=== PATIENT | female | born 1935 | race Caucasian/White ===

== ENCOUNTER 2016-06-28 22:43 | Emergency (ER) | payer OTHER, MEDICAID ==
--- NOTE | 2016-06-28 23:46 | ER Document Report ---
ED Fall - General Stated Complaint: BACK PAIN Time seen by provider: 23:45 Notes: Patient is an 81-year-old female that comes emergency department for chief complaint of fall injury, patient comes by EMS from [facility] assisted living, patient reportedly was attempting to walk without her walker when she fell backwards and landed on her lower back, patient was found lying on the floor, patient states she hit her head on the floor but she denies any headache. Patient states mainly her pain is in her lower back. She denies numbness or weakness. Patient is reported to be on a blood thinner by patient' s son who is at bedside. TRAVEL OUTSIDE OF THE [place] IN LAST 30 DAYS: No - Related data Allergies/Adverse Reactions: No Known Allergies Allergy (Unverified 07/06/12 18:48) Past Medical History - General Information source: Patient - Social History Smoking Status: Never Smoker Frequency of alcohol use: None Drug Abuse: None Lives with: Family Family History: Reviewed & Not Pertinent - Past Medical History Cardiac Medical History: Reports: Hx Heart Attack - 3 YEARS AGO. , Hx Hypertension Pulmonary Medical History: Denies: Hx Asthma Neurological Medical History: Reports: Hx Seizures - YEARS AGO. Denies: Hx Cerebrovascular Accident Malignancy Medical History: Reports: Hx Colorectal Cancer, Hx Lung Cancer GI Medical History: Reports: Hx Gastritis, Hx Gastroesophageal Reflux Disease. Denies: Hx Hepatitis, Hx Hiatal Hernia, Hx Ulcer Musculoskeltal Medical History: Reports Hx Arthritis, Reports Hx Musculoskeletal Deformity - osteoporosis, Reports Hx Musculoskeletal Trauma - right knee Psychiatric Medical History: Reports: Hx Dementia Traumatic Medical History: Reports: Hx Fractures Infectious Medical History: Denies: Hx Hepatitis Past Surgical History: Reports: Hx Bowel Surgery - colon resection for cancer, Hx Orthopedic Surgery - knee replacement, Hx Tubal Ligation. Denies: Hx Mastectomy, Hx Open Heart Surgery, Hx Pacemaker - Immunizations Immunizations up to date: Yes Hx Diphtheria, Pertussis, Tetanus Vaccination: Yes - 2011 Hx Pneumococcal Vaccination: 02/14/12 Review of Systems - Review of Systems Constitutional: No symptoms reported EENT: No symptoms reported Cardiovascular: No symptoms reported Respiratory: No symptoms reported Gastrointestinal: No symptoms reported Genitourinary: No symptoms reported Female Genitourinary: No symptoms reported Musculoskeletal: See HPI Skin: No symptoms reported Hematologic/Lymphatic: No symptoms reported Neurological/Psychological: See HPI Physical Exam - Vital signs Vitals: Temp Pulse Resp BP Pulse Ox 98.2 F 63 16 158/95 H 96 06/28/16 22:45 06/28/16 22:45 06/28/16 22:45 06/28/16 22:45 06/28/16 22:45 Interpretation: Normal - General General appearance: Appears well, Alert In distress: None - Patient sitting in the bed, actually alert and well- appearing - HEENT Head: Normocephalic, Atraumatic Eyes: Normal Conjunctiva: Normal Extraocular movements intact: Yes Eyelashes: Normal Pupils: PERRL Nasal: Normal Mouth/Lips: Normal Mucous membranes: Normal Pharynx: Normal Neck: Normal - Respiratory Respiratory status: No respiratory distress Chest status: Nontender Breath sounds: Normal Chest palpation: Normal - Cardiovascular Rhythm: Regular. No: Tachycardia Heart sounds: Normal auscultation, S1 appreciated, S2 appreciated - Abdominal Inspection: Normal Distension: No distension Bowel sounds: Normal Tenderness: Nontender. No: Tender, Guarding Organomegaly: No organomegaly - Back Back: Tender - Tender mainly in the left lumbar paraspinal muscles, I do not appreciate any midline tenderness of the spine, no saddle anesthesia, normal upper and lower extremity range of motion, strength, distal neurovascular exam - Extremities General upper extremity: Normal inspection, Nontender, Normal color, Normal ROM , Normal temperature General lower extremity: Other - Patient grimaces with palpation over both hips , nonspecific, normal lower extremity exam is otherwise - Neurological Neuro grossly intact: Yes Cognition: Normal. No: Confused - Patient can recall the events, is oriented to person, place Orientation: AAOx4 Debi Coma Scale Eye Opening: Spontaneous Debi Coma Scale Verbal: Oriented [place] Coma Scale Motor: Obeys Commands [place] Coma Scale Total: 15 Speech: Normal Cranial nerves: Normal Cerebellar coordination: Normal Motor strength normal: LUE, RUE, LLE, RLE Additional motor exam normals: Equal glass sander Sensory: Normal - Psychological Associated symptoms: Normal affect, Normal mood - Skin Skin Temperature: Warm Skin Moisture: Dry Skin Color: Normal Course - Re-evaluation Re-evalutation: CT of the head reviewed and unremarkable. Hip x-rays unremarkable. Patient has mild tenderness on the left lumbar paraspinal muscles, I do not appreciate any midline tenderness, imaging showing possible L1 compression fracture, undetermined age. Patient moving all extremities without difficulty, normal distal neurovascular exam. Discussed with patient and son, provided with pain medication, stool softener, instructions to follow-up with primary care for additional management. Discussed return precautions. - Vital Signs Vital signs: Temp Pulse Resp BP Pulse Ox 97.6 F 67 14 155/61 H 99 06/29/16 02:10 06/29/16 02:10 06/29/16 02:10 06/29/16 02:10 06/29/16 02:10 Discharge - Discharge Clinical Impression: Fall Qualifiers: Encounter type: initial encounter Qualified Code(s): W19.XXXA - Unspecified fall, initial encounter Lower back pain Qualifiers: Chronicity: acute Back pain laterality: bilateral Sciatica presence: without sciatica Qualified Code(s): M54.5 - Low back pain Condition: Stable Disposition: HOME, SELF-CARE Additional Instructions: Imaging of the head and hips show no abnormality, imaging of the lower back shows an uncertain age of a compression deformity at L1. It is uncertain if this is new at this time, take pain medication and stool softener as directed, if symptoms continue follow-up with your provider for additional evaluation. Return to the emergency department for any concerning symptoms. Prescriptions: Docusate Sodium [Colace 100 mg Capsule] 100 mg PO DAILY #30 capsule Hydrocodone/Acetaminophen [Redding 5-325 mg Tablet] 1 - 2 tab PO ASDIR #15 tablet Forms: Elevated Blood Pressure Referrals: PUMA STUBBS FNP-C [Primary Care Provider] - Follow up as needed Print Language: Welsh
[2016-06-29] MEDS ORDERED: HYDROCODONE/ACETAMINOPHEN 5-325 MG TABLET PO ONE (01:25)
[2016-06-29] MEDS ORDERED: ONDANSETRON 4 MG TAB.RAPDIS PO ONE (01:25)
[2016-06-29 04:14] VITALS: BP 155/61
== END 2016-06-29 02:15 | disposition home or self-care (01) ==
LOC: ER 22:43
DX: M54.5 Low back pain (principal); W19.XXXA Unspecified fall, initial encounter; Y93.01 Activity, walking, marching and hiking; Y92.199 Unspecified place in other specified residential institution as the place of occurrence of the external cause; I25.2 Old myocardial infarction; I10 Essential (primary) hypertension; Z79.01 Long term (current) use of anticoagulants; Z85.118 Personal history of other malignant neoplasm of bronchus and lung; Z85.048 Personal history of other malignant neoplasm of rectum, rectosigmoid junction, and anus
CPT/HCPCS: 99284; 72110; 73522; 70450; A9270 ×2; S0119

== ENCOUNTER 2016-11-25 19:58 | Emergency (ER) | payer MEDICARE, MEDICAID ==
[2016-11-25] MEDS ORDERED: NORMAL SALINE 1000 ML 1,000 ML IV ONE (20:15)
--- NOTE | 2016-11-25 20:18 | ER Document Report ---
ED Extremity Problem, Upper - General Chief Complaint: Shoulder Injury Stated Complaint: FALL/SHOULDER PAIN Time Seen by Provider: 11/25/16 20:14 Notes: The patient is an 81-year-old female who presents with left shoulder pain after a fall. She was given 60 mcg of fentanyl by EMS prior to arrival. She lives at [facility]. Patient says that she slipped on carpet while using her walker and landed on her left elbow. She denies hitting her head, neck pain, numbness, tingling or any other injuries. TRAVEL OUTSIDE OF THE [place] IN LAST 30 DAYS: No - Related Data Allergies/Adverse Reactions: No Known Allergies Allergy (Unverified 07/06/12 18:48) Past Medical History - General Information source: Patient - Social History Smoking Status: Unknown if Ever Smoked Family History: Reviewed & Not Pertinent - Past Medical History Cardiac Medical History: Reports: Hx Heart Attack - 3 YEARS AGO. , Hx Hypertension Pulmonary Medical History: Denies: Hx Asthma Neurological Medical History: Reports: Hx Seizures - YEARS AGO. Denies: Hx Cerebrovascular Accident Malignancy Medical History: Reports: Hx Colorectal Cancer, Hx Lung Cancer GI Medical History: Reports: Hx Gastritis, Hx Gastroesophageal Reflux Disease. Denies: Hx Hepatitis, Hx Hiatal Hernia, Hx Ulcer Musculoskeltal Medical History: Reports Hx Arthritis, Reports Hx Musculoskeletal Deformity - osteoporosis, Reports Hx Musculoskeletal Trauma - right knee Psychiatric Medical History: Reports: Hx Dementia Traumatic Medical History: Reports: Hx Fractures Infectious Medical History: Denies: Hx Hepatitis Past Surgical History: Reports: Hx Bowel Surgery - colon resection for cancer, Hx Orthopedic Surgery - knee replacement, Hx Tubal Ligation. Denies: Hx Mastectomy, Hx Open Heart Surgery, Hx Pacemaker - Immunizations Immunizations up to date: Yes Hx Diphtheria, Pertussis, Tetanus Vaccination: Yes - 2011 Hx Pneumococcal Vaccination: 02/14/12 Review of Systems - Review of Systems Notes: REVIEW OF SYSTEMS: CONSTITUTIONAL: -fevers, -chills EENT: -eye pain, -difficulty swallowing, -nasal congestion CARDIOVASCULAR:-chest pain, -syncope. RESPIRATORY: -cough, -SOB GASTROINTESTINAL: -abdominal pain, - nausea, -vomiting, -diarrhea GENITOURINARY: -dysuria, -hematuria MUSCULOSKELETAL: +left shoulder pain, -back pain, -neck pain SKIN: -rash or skin lesions. HEMATOLOGIC: -easy bruising or bleeding. LYMPHATIC: -swollen, enlarged glands. NEUROLOGICAL: -altered mental status or loss of consciousness, -headache, - neurologic symptoms PSYCHIATRIC: -anxiety, -depression. ALL OTHER SYSTEMS REVIEWED AND NEGATIVE. Physical Exam - Vital signs Vitals: Temp Resp BP Pulse Ox 98.9 F 16 87/55 L 94 11/25/16 20:10 11/25/16 20:10 11/25/16 20:10 11/25/16 20:10 - Notes Notes: PHYSICAL EXAMINATION: GENERAL: Well-appearing, well-nourished and in no acute distress. HEAD: Atraumatic, normocephalic. EYES: Pupils equal round and reactive to light, extraocular movements intact, sclera anicteric, conjunctiva are normal. ENT: nares patent, oropharynx clear without exudates. Moist mucous membranes. NECK: Normal range of motion, supple without lymphadenopathy LUNGS: Breath sounds clear to auscultation bilaterally and equal. No wheezes rales or rhonchi. HEART: Regular rate and rhythm without murmurs ABDOMEN: Soft, nontender, normoactive bowel sounds. No guarding, no rebound. No masses appreciated. EXTREMITIES: Tenderness and deformity of left proximal humerus. Swelling of left elbow. Strong radial and ulnar pulses. NEUROLOGICAL: Cranial nerves grossly intact. Normal speech, normal gait. Normal sensory and motor exams. PSYCH: Normal mood, normal affect. SKIN: Small x-shaped laceration over left elbow. Course - Re-evaluation Re-evalutation: Patient with evidence of left humeral head fracture. Small left elbow laceration repaired with Dermabond. Patient placed in sling and instructed to follow-up with orthopedics. She is neurovascularly intact distally and her tetanus is up-to-date. She says that this was a strictly mechanical fall and she did not hit her head. - Vital Signs Vital signs: Temp Pulse Resp BP Pulse Ox 98.9 F 14 124/73 96 11/25/16 20:10 11/25/16 21:01 11/25/16 21:01 11/25/16 21:01 - Diagnostic Test Radiology reviewed: Image reviewed, Reports reviewed Radiology results interpreted by me: Left humerus x-ray: Comminuted fracture of left humerus head Procedures - Laceration/Wound Repair Left Elbow Time completed: 21:28 Wound length (cm): 2 Wound's Depth, Shape: Superficial, Irregular Wound explored: Clean Irrigated w/ Saline (mLs): 500 Wound Repaired With: Steri-strips, Dermabond Post-procedure wound care: Sterile dressing applied, Sling applied Post-procedure NV exam normal: Yes Complications: No Discharge - Discharge Clinical Impression: Fracture of humeral head, closed Qualifiers: Encounter type: initial encounter Laterality: left Qualified Code(s): S42.292A - Other displaced fracture of upper end of left humerus, initial encounter for closed fracture Elbow laceration Qualifiers: Encounter type: initial encounter Laterality: left Qualified Code(s): S51.012A - Laceration without foreign body of left elbow, initial encounter Condition: Stable Disposition: HOME, SELF-CARE Additional Instructions: Keep the arm in the sling. Take Naprosyn and ice packs for pain adn Tylenol #3 for severe pain. Follow-up with Orthopedics. Fracture Proximal Humerus There is a fracture at the upper end of the humerus, near the shoulder joint. Your physician has assessed the fracture's severity and has determined that it will heal well without surgery or "setting." The typical shoulder fracture doesn't need a cast. It's best treated by binding the arm down with a special sling. Ice packs are used to reduce pain and swelling. After early healing has occurred, [id number] exercises are prescribed for the shoulder. Complete healing may take three to six weeks, depending on the age of the patient and the severity of the fracture. Call the doctor or return at once if the arm becomes numb, or if pain or swelling become severe. Prescriptions: Acetaminophen with Codeine [Tylenol #3 Tablet] 1 each PO Q4HP PRN #14 tablet PRN Reason: Naproxen [Naprosyn 250 mg Tablet] 250 mg PO Q12H #20 tablet Referrals: ERVIN LUCIO, [ACTIVE STAFF] - Follow up as needed
--- NOTE | 2016-11-25 20:44 | RADIOLOGY REPORT (SQ) ---
EXAM DESCRIPTION: SHOULDER LEFT 2 OR MORE VIEWS COMPLETED DATE/TIME: 11/25/2016 8:33 pm REASON FOR STUDY: fall COMPARISON: None. NUMBER OF VIEWS: Two views. TECHNIQUE: Frontal and lateral images acquired of the left shoulder. LIMITATIONS: None. FINDINGS: MINERALIZATION: Normal. BONES: Comminuted fracture of the humeral neck. JOINTS: No dislocation. VISUALIZED LUNGS AND RIBS: No pneumothorax. No rib fracture. SOFT TISSUES: No radiopaque foreign body. OTHER: No other significant finding. IMPRESSION: COMMINUTED FRACTURE OF THE HUMERAL NECK. TECHNICAL DOCUMENTATION: JOB ID: [id number] [employer]- All Rights Reserved
[2016-11-25] MEDS ORDERED: KETOROLAC TROMETHAMINE INJ/PF 30 MG/1 ML SDV IV ONE (20:55)
--- NOTE | 2016-11-25 21:17 | RADIOLOGY REPORT (SQ) ---
EXAM DESCRIPTION: ELBOW LEFT AP/LATERAL COMPLETED DATE/TIME: 11/25/2016 9:08 pm REASON FOR STUDY: left elbow injury COMPARISON: None. NUMBER OF VIEWS: Two views. TECHNIQUE: AP and lateral radiographic images acquired of the left elbow. LIMITATIONS: None. FINDINGS: MINERALIZATION: Normal. BONES: No acute fracture or dislocation. No worrisome bone lesions. JOINT: No effusion. SOFT TISSUES: No soft tissue swelling. No foreign body. OTHER: No other significant finding. IMPRESSION: NEGATIVE STUDY OF THE LEFT ELBOW. NO RADIOGRAPHIC EVIDENCE OF ACUTE INJURY. TECHNICAL DOCUMENTATION: JOB ID: [id number] [employer]- All Rights Reserved
[2016-11-25 22:26] VITALS: BP 123/71
== END 2016-11-25 22:24 | disposition home or self-care (01) ==
LOC: ER 19:58
DX: S42.292A Other displaced fracture of upper end of left humerus, initial encounter for closed fracture (principal); S51.012A Laceration without foreign body of left elbow, initial encounter; W19.XXXA Unspecified fall, initial encounter; W01.0XXA Fall on same level from slipping, tripping and stumbling without subsequent striking against object, initial encounter
CPT/HCPCS: 99283; 96361; 96374; 73070; 73030; J1885; J7030

== ENCOUNTER 2017-01-16 15:09 | Emergency (ER) | payer MEDICARE, MEDICAID ==
--- NOTE | 2017-01-16 16:08 | ER Document Report ---
ED Medical Screen (RME) - General Chief Complaint: Cough Stated Complaint: ALTERED MENTAL STATUS Time Seen by Provider: 01/16/17 15:46 Mode of Arrival: Wheelchair Information source: Patient, Relative Notes: 81-year-old female presents from care facility with concerns for altered mental status starting today associated with cough for the past 3 days patient has a history of UTIs and pneumonia in the past causing her altered mental status I have greeted and performed a rapid initial assessment of this patient. A comprehensive ED assessment and evaluation of the patient, analysis of test results and completion of the medical decision making process will be conducted by additional ED providers. PHYSICAL EXAMINATION: GENERAL: Elderly female no acute distress HEAD: Atraumatic, normocephalic. EYES: Pupils equal round extraocular movements intact, conjunctiva are normal. ENT: Nares patent NECK: Normal range of motion LUNGS: No respiratory distress Musculoskeletal: Normal range of motion NEUROLOGICAL: Normal speech, normal gait. Patient does repeat questions PSYCH: Normal mood, normal affect. SKIN: Warm, Dry, normal turgor, no rashes or lesions noted. TRAVEL OUTSIDE OF THE [place] IN LAST 30 DAYS: No - Related Data Allergies/Adverse Reactions: No Known Allergies Allergy (Unverified 07/06/12 18:48) Past Medical History - Social History Chew tobacco use (# tins/day): No Frequency of alcohol use: None Drug Abuse: None - Past Medical History Cardiac Medical History: Reports: Hx Heart Attack - 3 YEARS AGO. , Hx Hypertension Pulmonary Medical History: Denies: Hx Asthma Neurological Medical History: Reports: Hx Seizures - YEARS AGO. Denies: Hx Cerebrovascular Accident Renal/ Medical History: Denies: Hx Peritoneal Dialysis Malignancy Medical History: Reports: Hx Colorectal Cancer, Hx Lung Cancer GI Medical History: Reports: Hx Gastritis, Hx Gastroesophageal Reflux Disease. Denies: Hx Hepatitis, Hx Hiatal Hernia, Hx Ulcer Musculoskeltal Medical History: Reports Hx Arthritis, Reports Hx Musculoskeletal Deformity - osteoporosis, Reports Hx Musculoskeletal Trauma - right knee Psychiatric Medical History: Reports: Hx Dementia Traumatic Medical History: Reports: Hx Fractures Infectious Medical History: Denies: Hx Hepatitis Past Surgical History: Reports: Hx Bowel Surgery - colon resection for cancer, Hx Orthopedic Surgery - knee replacement, Hx Tubal Ligation. Denies: Hx Mastectomy, Hx Open Heart Surgery, Hx Pacemaker - Immunizations Immunizations up to date: Yes Hx Diphtheria, Pertussis, Tetanus Vaccination: Yes - 2011 Physical Exam - Vital signs Vitals: Temp Pulse Resp BP Pulse Ox 98.7 F 87 20 140/65 H 96 01/16/17 15:17 01/16/17 15:17 01/16/17 15:17 01/16/17 15:17 01/16/17 15:17 Course - Vital Signs Vital signs: Temp Pulse Resp BP Pulse Ox 98.7 F 87 20 140/65 H 96 01/16/17 15:17 01/16/17 15:17 01/16/17 15:17 01/16/17 15:17 01/16/17 15:17
[2017-01-16 16:29] LABS: PROTHROMBIN TIME 12.9 SEC (11.4-15.4)
[2017-01-16 16:31] LABS: VENOUS BLOOD BASE EXCESS 6.7 mmol/L; VENOUS BLOOD HCO3 30.1 mmol/L (20-32); VENOUS BLOOD PCO2 38.7 mmHg (35-63); VENOUS BLOOD PH 7.51 (7.30-7.42)
[2017-01-16 16:33] LABS: ABSOLUTE LYMPHOCYTES (AUTO) 1.7 10^3/uL (0.5-4.7); ABSOLUTE MONOCYTES (AUTO) 0.5 10^3/uL (0.1-1.4); ABSOLUTE NEUT (AUTO) 6.3 10^3/uL (1.7-8.2); BASOPHILS % (AUTO) 0.3 % (0-2); EOSINOPHILS % (AUTO) 0.5 % (0-6); HEMATOCRIT 32.3 % (36.0-47.0); HEMOGLOBIN 11.3 g/dL (12.0-15.5); HGB HCT DIFFERENCE 1.6; LYMPHOCYTES % (AUTO) 20.2 % (13-45); MEAN CORPUSCULAR HEMOGLOBIN 31.3 pg (27.0-33.4); MEAN CORPUSCULAR VOLUME 90 fl (80-97); MONOCYTES % (AUTO) 5.3 % (3-13); RED BLOOD COUNT 3.61 10^6/uL (3.72-5.28); RED CELL DISTRIBUTION WIDTH 15.4 % (11.5-14.0); SEGMENTED NEUTROPHILS % (AUTO) 73.7 % (42-78); WHITE BLOOD COUNT 8.5 10^3/uL (4.0-10.5)
[2017-01-16 16:55] LABS: ALANINE AMINOTRANSFERASE 24 U/L (9-52); ALBUMIN 3.8 g/dL (3.5-5.0); ALKALINE PHOSPHATASE 142 U/L (38-126); ANION GAP 10 (5-19); ASPARTATE AMINO TRANSFERASE 32 U/L (14-36); BILIRUBIN,DIRECT 0.4 mg/dL (0.0-0.4); BILIRUBIN,TOTAL 0.6 mg/dL (0.2-1.3); BLOOD UREA NITROGEN 12 mg/dL (7-20); CALCIUM 9.3 mg/dL (8.4-10.2); CARBON DIOXIDE 29 mmol/L (22-30); CHLORIDE 102 mmol/L (98-107); CREATININE RESULT 0.56 mg/dL (0.52-1.25); GLUCOSE 106 mg/dL (75-110); POTASSIUM 3.9 mmol/L (3.6-5.0); SODIUM 141.3 mmol/L (137-145); TOTAL PROTEIN 7.3 g/dL (6.3-8.2)
--- NOTE | 2017-01-16 17:00 | RADIOLOGY REPORT (SQ) ---
EXAM DESCRIPTION: CHEST PA/LAT COMPLETED DATE/TIME: 01/16/2017 4:51 pm REASON FOR STUDY: altered COMPARISON: 11/10/2014. NUMBER OF VIEWS: Two view. TECHNIQUE: Frontal and lateral radiographic views of the chest acquired. LIMITATIONS: None. FINDINGS: LUNGS AND PLEURA: No opacities, masses or pneumothorax. No pleural effusion. Attenuated bl ood vessels and flattened sal-diaphragms. MEDIASTINUM AND HILAR STRUCTURES: No masses. No contour abnormalities. HEART AND VASCULAR STRUCTURES: Heart normal in size and contour. No evidence for failure. BONES: Compression fracture of a lower thoracic vertebral body, presumably old. Healing fracture of the left humeral neck. HARDWARE: None in the chest. OTHER: No other significant finding. IMPRESSION: COPD. NO ACUTE RADIOGRAPHIC FINDING IN THE CHEST. TECHNICAL DOCUMENTATION: JOB ID: [id number] [employer]- All Rights Reserved
[2017-01-16 17:09] LABS: AMORPHOUS SEDIMENT,URINE TRACE /HPF; APPEARANCE,URINE SLIGHTLY-CLOUDY; BILIRUBIN,URINE NEGATIVE (NEGATIVE); GLUCOSE, URINE NEGATIVE (NEGATIVE); KETONES,URINE NEGATIVE (NEGATIVE); LEUKOCYTE ESTERASE,URINE LARGE (NEGATIVE); NITRITE,URINE NEGATIVE (NEGATIVE); PROTEIN,URINE NEGATIVE (NEGATIVE); URINE SPECIFIC GRAVITY 1.005; UROBILINOGEN,URINE NEGATIVE mg/dL (<2.0)
[2017-01-16] MEDS ORDERED: SULFAMETHOXAZOLE/TRIMETHOPRIM 800-160 MG TABLET PO ONE (18:46)
--- NOTE | 2017-01-16 18:51 | ER Document Report ---
ED General - General Chief Complaint: Cough Stated Complaint: ALTERED MENTAL STATUS Time Seen by Provider: 01/16/17 15:46 Mode of Arrival: Wheelchair Information source: Patient, Relative TRAVEL OUTSIDE OF THE [place] IN LAST 30 DAYS: No - HPI Patient complains to provider of: cough Onset: Other - family states pt. has had cough and multiple UTI's which have caused dMS changes in the past. Denies fever - Related Data Allergies/Adverse Reactions: No Known Allergies Allergy (Unverified 07/06/12 18:48) Past Medical History - General Information source: Patient, Relative - Social History Smoking Status: Never Smoker Chew tobacco use (# tins/day): No Frequency of alcohol use: None Drug Abuse: None Family History: Reviewed & Not Pertinent Patient has suicidal ideation: No Patient has homicidal ideation: No - Past Medical History Cardiac Medical History: Reports: Hx Heart Attack - 3 YEARS AGO. , Hx Hypertension Pulmonary Medical History: Denies: Hx Asthma Neurological Medical History: Reports: Hx Seizures - YEARS AGO. Denies: Hx Cerebrovascular Accident Renal/ Medical History: Denies: Hx Peritoneal Dialysis Malignancy Medical History: Reports: Hx Colorectal Cancer, Hx Lung Cancer GI Medical History: Reports: Hx Gastritis, Hx Gastroesophageal Reflux Disease. Denies: Hx Hepatitis, Hx Hiatal Hernia, Hx Ulcer Musculoskeltal Medical History: Reports Hx Arthritis, Reports Hx Musculoskeletal Deformity - osteoporosis, Reports Hx Musculoskeletal Trauma - right knee Psychiatric Medical History: Reports: Hx Dementia Traumatic Medical History: Reports: Hx Fractures Infectious Medical History: Denies: Hx Hepatitis Past Surgical History: Reports: Hx Bowel Surgery - colon resection for cancer, Hx Orthopedic Surgery - knee replacement, Hx Tubal Ligation. Denies: Hx Mastectomy, Hx Open Heart Surgery, Hx Pacemaker - Immunizations Immunizations up to date: Yes Hx Diphtheria, Pertussis, Tetanus Vaccination: Yes - 2011 Hx Pneumococcal Vaccination: 02/14/12 Review of Systems - Review of Systems Constitutional: No symptoms reported Cardiovascular: No symptoms reported Respiratory: See HPI, Cough Gastrointestinal: No symptoms reported Female Genitourinary: No symptoms reported Musculoskeletal: No symptoms reported -: Yes All other systems reviewed and negative Physical Exam - Vital signs Vitals: Temp Pulse Resp BP Pulse Ox 98.7 F 87 20 140/65 H 96 01/16/17 15:17 01/16/17 15:17 01/16/17 15:17 01/16/17 15:17 01/16/17 15:17 - General General appearance: Appears well, Alert In distress: None - Respiratory Respiratory status: No respiratory distress Breath sounds: Normal Chest palpation: Normal - Cardiovascular Rhythm: Regular Heart sounds: Normal auscultation - Abdominal Inspection: Normal Tenderness: Nontender - Extremities General upper extremity: Normal inspection General lower extremity: Normal inspection Course - Re-evaluation Re-evalutation: 01/16/17 18:48 pt. given bactrim in ED -- family ok to take her back to [facility] - Vital Signs Vital signs: Temp Pulse Resp BP Pulse Ox 98.7 F 87 20 140/65 H 96 01/16/17 15:17 01/16/17 15:17 01/16/17 15:17 01/16/17 15:17 01/16/17 15:17 - Laboratory Result Diagrams: 01/16/17 16:05 01/16/17 16:05 Laboratory results interpreted by me: 01/16/17 01/16/17 01/16/17 16:05 16:05 16:05 RBC 3.61 L Hgb 11.3 L Hct 32.3 L RDW 15.4 H VBG pH 7.51 H Alkaline Phosphatase 142 H Urine Blood Ur Leukocyte Esterase Urine Ascorbic Acid 01/16/17 16:45 RBC Hgb Hct RDW VBG pH Alkaline Phosphatase Urine Blood SMALL H Ur Leukocyte Esterase LARGE H Urine Ascorbic Acid 40 H - Diagnostic Test Radiology reviewed: Reports reviewed - neg infiltrate Discharge - Discharge Clinical Impression: UTI (urinary tract infection) Qualifiers: Urinary tract infection type: acute cystitis Hematuria presence: without hematuria Qualified Code(s): N30.00 - Acute cystitis without hematuria Condition: Stable Disposition: HOME, SELF-CARE Instructions: Trimethoprim-Sulfa ([facility]), Urinary Tract Infection ([facility]) Additional Instructions: rest, take meds as prescribed, return if worse Prescriptions: Sulfamethoxazole/Trimethoprim [Bactrim Ds Tablet] 1 each PO BID #14 tablet
[2017-01-16 19:29] VITALS: BP 132/66
--- NOTE | 2017-01-16 23:26 | EKG REPORT ---
SEVERITY:- BORDERLINE ECG - SINUS RHYTHM VENTRICULAR PREMATURE COMPLEX BORDERLINE PROLONGED QT INTERVAL : Confirmed by: Cynthia Colin 16-Jan-2017 23:24:50
== END 2017-01-16 19:51 | disposition home or self-care (01) ==
LOC: ER 15:09
DX: N30.00 Acute cystitis without hematuria (principal); R05 Cough; I25.2 Old myocardial infarction; I10 Essential (primary) hypertension; Z85.048 Personal history of other malignant neoplasm of rectum, rectosigmoid junction, and anus; Z85.118 Personal history of other malignant neoplasm of bronchus and lung
CPT/HCPCS: 93005; 99285; 51701; 36415; 87040; 87086; 85025; 85610; 87088; 80053; 81001; 87186; 82803; 83605; 71020; 93010; A9270

== ENCOUNTER → 2018-08-04 | Outpatient (CLI) | payer MEDICARE, MEDICAID | LOC: OD 11:39 | PROVIDERS: ATTEND Physician Assistant | DX: E87.6 Hypokalemia (principal) | CPT/HCPCS: 36415; 84132 ==

== ENCOUNTER 2019-04-07 06:27 | Emergency (ER) | payer MEDICARE, MEDICAID ==
--- NOTE | 2019-04-07 08:14 | ER Document Report ---
ED General - General Chief Complaint: Rash Stated Complaint: WEAKNESS Time Seen by Provider: 04/07/19 08:13 Primary Care Provider: TIMOTHY ALEJO PA-C [Primary Care Provider] - Follow up as needed TRAVEL OUTSIDE OF THE [place] IN LAST 30 DAYS: No - HPI Notes: 83-year-old female to the emergency department with complaints of a rash to her chest that is been ongoing for a couple of weeks. [facility] Her son is bedside and states that he noticed this rash and patient itching shortly after she started her in [place]. He states the rash is gotten a little bit worse but is not particularly alarming. He states that she has had no other symptoms. He denies any fevers, chills, change in mental status. She has advanced dementia and has had a steady decline in her strength for several years now. Son denies any new weakness or change from her baseline. - Related Data Allergies/Adverse Reactions: No Known Allergies Allergy (Unverified 07/06/12 18:48) Home Medications: see paper work from sending facility Past Medical History - General Information source: Relative - Son - Social History Smoking Status: Never Smoker Frequency of alcohol use: None Drug Abuse: None Lives with: Group Home Family History: Reviewed & Not Pertinent Patient has suicidal ideation: No Patient has homicidal ideation: No - Past Medical History Cardiac Medical History: Reports: Hx Heart Attack - 3 YEARS AGO. , Hx Hypertension Pulmonary Medical History: Denies: Hx Asthma Neurological Medical History: Reports: Hx Seizures - YEARS AGO. Denies: Hx Cerebrovascular Accident Renal/ Medical History: Denies: Hx Peritoneal Dialysis Malignancy Medical History: Reports: Hx Colorectal Cancer, Hx Lung Cancer GI Medical History: Reports: Hx Gastritis, Hx Gastroesophageal Reflux Disease. Denies: Hx Hepatitis, Hx Hiatal Hernia, Hx Ulcer Musculoskeletal Medical History: Reports Hx Arthritis, Reports Hx Musculoskeletal Deformity - osteoporosis, Reports Hx Musculoskeletal Trauma - right knee Psychiatric Medical History: Reports: Hx Dementia Traumatic Medical History: Reports: Hx Fractures Infectious Medical History: Denies: Hx Hepatitis Past Surgical History: Reports: Hx Bowel Surgery - colon resection for cancer, Hx Orthopedic Surgery - knee replacement, Hx Tubal Ligation. Denies: Hx Mastectomy, Hx Open Heart Surgery, Hx Pacemaker - Immunizations Immunizations up to date: Yes Hx Diphtheria, Pertussis, Tetanus Vaccination: Yes - 2011 Hx Pneumococcal Vaccination: 02/14/12 Review of Systems - Review of Systems Constitutional: denies: Chills, Fever Cardiovascular: denies: Chest pain, Palpitations Respiratory: denies: Cough, Short of breath Gastrointestinal: denies: Abdominal pain, Diarrhea, Nausea, Vomiting Musculoskeletal: No symptoms reported Skin: See HPI, Rash Neurological/Psychological: Dementia -: Yes All other systems reviewed and negative Physical Exam - Vital signs Vitals: Temp Pulse Resp BP Pulse Ox 97.8 F 81 16 134/88 H 97 04/07/19 06:34 04/07/19 06:34 04/07/19 06:34 04/07/19 06:34 04/07/19 06:34 Interpretation: Normal - General General appearance: Appears well, Alert Notes: Patient is pleasantly demented. She states that she is doing well today. - HEENT Head: Normocephalic, Atraumatic Eyes: Normal Pupils: PERRL - Respiratory Respiratory status: No respiratory distress Chest status: Nontender. No: Accessory muscle use Breath sounds: Normal. No: Productive cough, Rales, Rhonchi, Stridor, Wheezing Chest palpation: Normal - Cardiovascular Rhythm: Regular Heart sounds: Normal auscultation Murmur: No - Abdominal Inspection: Normal Distension: No distension Bowel sounds: Normal Tenderness: Nontender. No: Tender, McBurney's point, Barber's sign, Guarding, Rebound Organomegaly: No organomegaly - Back Back: Normal, Nontender - Neurological Cognition: Normal Orientation: No: Disoriented to place, Disoriented to time [place] Coma Scale Eye Opening: Spontaneous [place]bi Coma Scale Verbal: Confused - pleasantly confused, but still able to follow commands and talk with me [place] Coma Scale Motor: Obeys Commands [place] Coma Scale Total: 14 Speech: Normal Cranial nerves: Normal. No: Facial palsy, Forehead sparing, Gaze palsy, Sensory deficit, Tongue deviation Cerebellar coordination: Normal Additional motor exam normals: Equal fishing hand. No: Pronator drift - Psychological Associated symptoms: Normal affect, Normal mood, Confused - baseline confusion for her dementia - Skin Skin Temperature: Warm Skin Color: Normal Skin irregularity: Rash - There is a rash to the chest with macular erythematous areas with noted excoriations and scabs. This does not appear to be infected currently and there is no streaking erythema or drainage to the site. This is not a vesicular rash. There is no herald patch. There is no desquamation. There is no skin tears. There is no necrosis. Course - Re-evaluation Re-evalutation: 04/07/19 08:37 Impression: Dermatitissuspect contact in nature. Son is unsure if there is been any changes in detergent or hygiene products at the nursing facility. Doubt that this is an allergic reaction from in [place] since the rashes not more widespread. Will send home with Benadryl, low-dose steroidal cream, bacitracin. It is not infected today but given that she has been itching it we will go ahead and start to cover with antibiotic ointment. Encouraged her son to take patient to PCP in the next week. Also encouraged him to return if any worsening symptoms. He agrees with the plan. Inquired if he felt like she had any other symptoms or concerns this morning and he states other than the rash the patient is at her normal baseline and does not feel she needs further work-up. - Vital Signs Vital signs: Temp Pulse Resp BP Pulse Ox 97.8 F 81 16 134/88 H 97 04/07/19 06:34 04/07/19 06:34 04/07/19 06:34 04/07/19 06:34 04/07/19 06:34 Discharge - Discharge Clinical Impression: Dermatitis, Dementia Condition: Stable Disposition: HOME, SELF-CARE Additional Instructions: APPLY CREAMS PRESCRIBED. USE BENADRYL TO AID IN ITCHING RELIEF. RETURN IF FEVERS, SPREADING RASH, ACUTE DECLINE IN MENTAL STATUS, OR ANY OTHER CONCERNS. FOLLOW UP WITH PRIMARY CARE IN ONE WEEK. Prescriptions: Bacitracin Zinc [Bacitracin Oint 15 gm] 1 applic TP BID #1 tube Diphenhydramine HCl [Benadryl 25 mg Capsule] 1 cap PO Q8 PRN #30 tab PRN Reason: Itching Hydrocortisone [Cortisone] 28 gm TP BID #1 tube Referrals: TIMOTHY ALEJO PA-C [Primary Care Provider] - Follow up in 1 week
[2019-04-07] MEDS ORDERED: BACITRACIN ZINC OINTMENT 15 GM TP ONE (08:32)
[2019-04-07] MEDS ORDERED: DIPHENHYDRAMINE HCL 25 MG CAPSULE PO ONE (08:32)
[2019-04-07 09:16] VITALS: BP 137/68
== END 2019-04-07 09:14 | disposition home or self-care (01) ==
LOC: ER 06:27
DX: L30.9 Dermatitis, unspecified (principal); F03.90 Unspecified dementia, unspecified severity, without behavioral disturbance, psychotic disturbance, mood disturbance, and anxiety; R53.1 Weakness; I10 Essential (primary) hypertension; Z96.659 Presence of unspecified artificial knee joint; I25.2 Old myocardial infarction
CPT/HCPCS: 99282; A9270; J3490

== ENCOUNTER 2019-05-05 21:31 | Emergency (ER) | payer MEDICARE, MEDICAID ==
--- NOTE | 2019-05-05 23:20 | ER Document Report ---
ED General - General Chief Complaint: Rash Stated Complaint: YELLOW COLOR/RASH ALL OVER Time Seen by Provider: 05/05/19 22:23 Primary Care Provider: TIMOTHY ALEJO PA-C [Primary Care Provider] - Follow up in 3-5 days Notes: 84-year-old female with history of dementia presents from [facility] for rash that she states started yesterday. Patient denies any lip/tongue/throat swelling or shortness of breath. Patient denies any fever, chest pain, dizziness. TRAVEL OUTSIDE OF THE [place] IN LAST 30 DAYS: No - Related Data Allergies/Adverse Reactions: No Known Allergies Allergy (Unverified 07/06/12 18:48) Past Medical History - Social History Smoking Status: Unknown if Ever Smoked Family History: Reviewed & Not Pertinent - Past Medical History Cardiac Medical History: Reports: Hx Heart Attack - 3 YEARS AGO. , Hx Hypertension Pulmonary Medical History: Denies: Hx Asthma Neurological Medical History: Reports: Hx Seizures - YEARS AGO. Denies: Hx Cerebrovascular Accident Renal/ Medical History: Denies: Hx Peritoneal Dialysis Malignancy Medical History: Reports: Hx Colorectal Cancer, Hx Lung Cancer GI Medical History: Reports: Hx Gastritis, Hx Gastroesophageal Reflux Disease. Denies: Hx Hepatitis, Hx Hiatal Hernia, Hx Ulcer Musculoskeletal Medical History: Reports Hx Arthritis, Reports Hx Musculoskeletal Deformity - osteoporosis, Reports Hx Musculoskeletal Trauma - right knee Psychiatric Medical History: Reports: Hx Dementia Traumatic Medical History: Reports: Hx Fractures Infectious Medical History: Denies: Hx Hepatitis Past Surgical History: Reports: Hx Bowel Surgery - colon resection for cancer, Hx Orthopedic Surgery - knee replacement, Hx Tubal Ligation. Denies: Hx Mastectomy, Hx Open Heart Surgery, Hx Pacemaker - Immunizations Immunizations up to date: Yes Hx Diphtheria, Pertussis, Tetanus Vaccination: Yes - 2011 Hx Pneumococcal Vaccination: 02/14/12 Review of Systems - Review of Systems Notes: Constitutional: Negative for fever. HENT: Negative for sore throat. Eyes: Negative for visual changes. Cardiovascular: Negative for chest pain. Respiratory: Negative for shortness of breath. Gastrointestinal: Negative for abdominal pain, vomiting or diarrhea. Genitourinary: Negative for dysuria. Musculoskeletal: Negative for back pain. Skin: Positive for rash. Neurological: Negative for headaches, weakness or numbness. 10 point ROS negative except as marked above and in HPI. Physical Exam - Vital signs Vitals: Temp Pulse Ox 97.7 F 98 12/21/19 21:45 05/05/19 21:45 - Notes Notes: GENERAL: Well-appearing, well-nourished and in no acute distress. HEAD: Atraumatic, normocephalic. EYES: Extraocular movements intact, sclera anicteric, conjunctiva are normal. NECK: Normal range of motion, supple without lymphadenopathy or JVD. LUNGS: Breath sounds clear to auscultation bilaterally and equal. No wheezes rales or rhonchi. HEART: Regular rate and rhythm without murmurs, rubs or gallops. EXTREMITIES: Normal range of motion, no pitting or edema. No clubbing or cyanosis. NEUROLOGICAL: Cranial nerves II through XII grossly intact. Normal speech. PSYCH: Normal mood, normal affect. SKIN: Area of irritation noted under breasts worse on right side consistent with yeast infection. Course - Re-evaluation Re-evalutation: 05/05/19 Pleasant, nontoxic well appearing female presents for rash. Area of irritation noted under bilateral breast, worse on right side, consistent with yeast infection. Pt prescribed nystatin cream with follow up with PCP in 3-5 days. Return precautions given. All questions/concerns addressed prior to discharge. - Vital Signs Vital signs: Temp Pulse Resp BP Pulse Ox 97.7 F 16 145/80 H 98 05/05/19 22:01 05/05/19 22:00 05/05/19 22:01 05/05/19 22:01 Discharge - Discharge Clinical Impression: [place] infection Condition: Stable Disposition: HOME, SELF-CARE Additional Instructions: Please use cream as prescribed under right breast. Please take Benadryl, Aletha, Zyrtec, or Claritin for symptom relief. Please follow-up with your primary care doctor in 3 to 5 days. Return to ER for any worsening symptoms, including fever, worsening rash, skin peeling off, chest pain, shortness of breath, nausea/vomiting, or any other symptoms5 that are concerning to you. Prescriptions: Nystatin [Mycostatin Cream 15 gm] 1 applic TP BID #15 gm Referrals: TIMOTHY ALEJO PA-C [Primary Care Provider] - Follow up in 3-5 days
[2019-05-06 00:42] VITALS: BP 144/57
== END 2019-05-06 00:43 | disposition home or self-care (01) ==
LOC: ER 21:31
DX: B37.2 Candidiasis of skin and nail (principal); I10 Essential (primary) hypertension; Z85.038 Personal history of other malignant neoplasm of large intestine; Z85.118 Personal history of other malignant neoplasm of bronchus and lung; I25.2 Old myocardial infarction; Z96.659 Presence of unspecified artificial knee joint; Z98.51 Tubal ligation status
CPT/HCPCS: 99284

== ENCOUNTER 2019-06-29 20:28 | Emergency (ER) | payer MEDICARE, MEDICAID ==
[2019-06-29 20:41] VITALS: BP 134/52
== END 2019-06-29 23:30 | disposition left against medical advice (07) ==
LOC: ER 20:28
DX: Z53.21 Procedure and treatment not carried out due to patient leaving prior to being seen by health care provider (principal)